=== PATIENT | male | born 1985 | race African-American/Black ===

== ENCOUNTER 2022-08-28 10:00 | Emergency (ER) | payer OTHER ==
[~2022-08-28] VITALS: Ht 170.2 cm; Wt 110.7 kg
[2022-08-28 10:00] VITALS: BP 127/74
--- NOTE | 2022-08-28 10:04 | NUR ---
PT TO BED 03 BY [facility]
[2022-08-28] MEDS ORDERED: NAPR-1704 PO (10:15)
[2022-08-28] MEDS ORDERED: IBUPROFEN 400 MG TAB PO ONE (10:20)
[2022-08-28 10:45] VITALS: BP 127/74
== END 2022-08-28 10:45 | disposition home or self-care (01) ==
LOC: MED 10:00
DX: S39.012A Strain of muscle, fascia and tendon of lower back, initial encounter (principal); S29.012A Strain of muscle and tendon of back wall of thorax, initial encounter; M54.2 Cervicalgia; V89.2XXA Person injured in unspecified motor-vehicle accident, traffic, initial encounter; Y93.89 Activity, other specified; Y92.410 Unspecified street and highway as the place of occurrence of the external cause; Y99.8 Other external cause status
CPT/HCPCS: 99283